=== PATIENT | female | born 1965 | race Caucasian/White ===

== ENCOUNTER 2016-11-15 12:13 | Outpatient (CLI) ==
[2016-04-17 12:25] VITALS: BMI 33.6
--- NOTE | 2016-11-15 13:47 | US ---
EXAM: Bilateral lower extremity venous doppler. HISTORY: Bilateral lower extremity swelling. Right leg pain. COMPARISON: None available. TECHNIQUE: Multiple grayscale and color doppler images were obtained. FINDINGS: There is normal flow, compressibility and augmentation of flow within the right and left common femoral, greater saphenous, profunda, femoral, popliteal, posterior tibial, anterior tibial a nd peroneal veins. IMPRESSION: No evidence for right or left lower extremity deep vein thrombosis at the levels examined.
--- NOTE | 2016-11-15 14:07 | DI ---
EXAM: Five views of the lumbar spine HISTORY: Back pain. COMPARISON: Lumbar spine x-ray 12/07/2015 and 08/19/2014 FINDINGS: Vertebral bodies demonstrate no acute compression fracture or subluxation. There is minim al scattered facet arthropathy. The lumbosacral junction is intact. There is no pars defect identi fied. IMPRESSION: No acute abnormality of the lumbar spine with minimal scattered facet arthropathy.
--- NOTE | 2016-11-15 14:07 | DI ---
Exam: Right hip two views History: Right hip pain Findings: AP and frog lateral views of the right hip were obtained and demonstrates a moderate degr ee of spurring arising from the superior lateral right acetabular rim. Right femoral head is smooth in contour and in satisfactory relationship to the right acetabulum. Right hip joint space appears normal in width. Impression: Sclerosis with associated spurring of the superior lateral right acetabular rim with pr eservation of right hip joint space width.
== END 2016-11-15 12:14 | disposition home or self-care (01) ==
LOC: RAD 12:13
PROVIDERS: ATTEND Internal Medicine
DX: M25.551 Pain in right hip (principal); M79.651 Pain in right thigh; M79.605 Pain in left leg; M54.9 Dorsalgia, unspecified

== ENCOUNTER 2016-11-22 07:40 | Emergency (ER) ==
[2016-11-22 07:48] VITALS: BP 117/77; TEMP 97.8; BMI 33.2
[2016-11-22] MEDS ORDERED: ZOFRAN 4 MG/2 ML IM STA (08:07)
[2016-11-22] MEDS ORDERED: MORPHINE 4 MG/ML SYRINGE IM STA (08:07)
[2016-11-22] MEDS ORDERED: TORADOL IM STA (08:07)
[2016-11-22] MEDS ORDERED: DECADRON 4 MG/ML SDV IM STA (08:07)
--- NOTE | 2016-11-22 08:11 | ED.PDOC ---
General ED Provider: Dr. JESSE PEREZ Chief Complaint: Back Pain Stated Complaint: back pain Time Seen by Physician: 07:40 (pt seen with Cheryl Roblero and myself she has back pain lumbar) Mode of Arrival: Wheelchair Information Source: Patient Exam Limitations: No limitations Primary Care Provider: TRACI HOPKINS Nursing and Triage Documentation Reviewed and Agree: Yes (HIP FILM , LOWER LEG US AND L/SPINE FILMS OUT PT WERE EXAMINED ) Musculoskeletal Complaint Exam - Back Pain Complaint/Exam Mechanism of Injury: Reports: No known trauma Onset/Duration: CHRONIC ACUTELY WORSE TODAY Symptoms Are: Still present Episodes Lasting: Hours Initial Severity: Moderate Current Severity: Moderate Character: Reports: Spasmodic Aggravating: Reports: Movements, Lifting, Bending, Walking Alleviating: Reports: Rest, Position Associated Signs and Symptoms: Denies: Swelling, Redness, Bruising, Fever, Weakness, Numbness, Tingling, Abdominal pain, Flank pain, Bladder incontinence, Bowel incontinence, Weight loss, Pain with weight bearing Related History: Reports: Similar episode (BUT PAIN NOW RX DOWN RIGHT POST LEG (NO TRAUMA)) TAD Risk Factors: Reports: None AAA Risk Factors: Reports: None Cauda Equina Risk Factors: Reports: None Epidural Abcess Risk Factors: Reports: None Related Surgical History: Reports: None Focal Tenderness: No Paraspinal Muscle Tenderness: No Paraspinal Muscle Spasm: No Scoliosis: No Lordosis: No Kyphosis: No SLR Test: Right Negative, Left Negative Hip Motion Testing Pain: Right Negative, Left Negative Focal Weakness: Present: None Focal Sensory Loss: Present: None Gait: Present: Normal Differential Diagnoses: Strain, Sprain Review of Systems - Review Of Systems Constitutional: Reports: No symptoms Eyes: Reports: No symptoms Ears, Nose, Mouth, Throat: Reports: No symptoms Respiratory: Reports: No symptoms Cardiac: Reports: No symptoms GI: Reports: No symptoms : Reports: No symptoms Musculoskeletal: Reports: Back pain (LUMBAR NO URINARY ISSUES ) Skin: Reports: No symptoms Neurological: Reports: No symptoms Endocrine: Reports: No symptoms Hematologic/Lymphatic: Reports: No symptoms All Other Systems: Reviewed and Negative Past Medical History - Past Medical History Previously Healthy: Yes Endocrine: Reports: Hypothyroid Cardiovascular: Reports: None Respiratory: Reports: None Hematological: Reports: None Gastrointestinal: Reports: None Genitourinary: Reports: None Neuro/Psych: Reports: None Musculoskeletal: Reports: None Cancer: Reports: None Last Menstrual Period: 1 week - Surgical History General Surgical History: Reports: Gastric Bypass - Family History Family History: Reports: Unknown - Social History Smoking Status: Never smoker Hx Substance Use: No Alcohol Screening: None Physical Exam - Physical Exam Appearance: Well-appearing, No pain distress, Well-nourished Eyes: MASSIMO, EOMI, Conjunctiva clear ENT: Ears normal, Nose normal, Oropharynx normal Respiratory: Airway patent, Breath sounds clear, Breath sounds equal, Respirations nonlabored Cardiovascular: RRR, Pulses normal, No rub, No murmur GI/: Soft, Nontender, No masses, Bowel sounds normal, No Organomegaly Musculoskeletal: Normal strength, ROM intact, No edema, No calf tenderness Skin: Warm, Dry, Normal color Neurological: Sensation intact, Motor intact, Reflexes intact, Cranial nerves intact, Alert, Oriented Psychiatric: Affect appropriate, Mood appropriate Interpretation - Radiology Interpretation Radiology Interpretation By: Radiologist (EXAMINED ALL OLD ER OUT PT STUDIES AND INFORMED PT AT 8 AM HUSNABD AND MAY AT BEDSIDE) Critical Care Note - Critical Care Note Total Time (mins): 0 Course - Course Orders, Labs, Meds: Orders Category Date Time Status Dexamethasone 4 mg/ml Inj [Decadron 4 mg/ml Sdv] MEDS 11/22/16 08:07 Stat 4 mg IM ONCE STA Ketorolac Tromethamine [Toradol] MEDS 11/22/16 08:07 Stat 30 mg IM ONCE STA Morphine Sulfate [Morphine 4 mg/ml Syringe] MEDS 11/22/16 08:07 Stat 4 mg IM ONCE STA Ondansetron HCl/Pf [Zofran 4 mg/2 ml] MEDS 11/22/16 08:07 Stat 4 mg IM ONCE STA Medications Discontinued Medications Generic Name Dose Route Start Last Admin Trade Name Freq PRN Reason Stop Dose Admin Dexamethasone Sodium Phosphate 4 mg 11/22/16 08:07 Decadron 4 Mg/Ml Sdv IM 11/22/16 08:08 ONCE STA Ketorolac Tromethamine 30 mg 11/22/16 08:07 Toradol IM 11/22/16 08:08 ONCE STA Morphine Sulfate 4 mg 11/22/16 08:07 Morphine 4 Mg/Ml Syringe IM 11/22/16 08:08 ONCE STA Ondansetron HCl 4 mg 11/22/16 08:07 Zofran 4 Mg/2 Ml IM 11/22/16 08:08 ONCE STA Vital Signs: Temp Pulse Resp BP Pulse Ox 11/22/16 07:40 97.8 F 92 H 20 117/77 100 Departure - Departure Time of Disposition: 09:00 (MRI DISCUSSED WITH MAY WOULD AT BEDSIDE. PT HAS OUT PT PAIN MEDS GIVEN TO HER BY HER MD ) Disposition: HOME SELF-CARE Discharge Problem: Sciatic leg pain, Backache Instructions: Sciatica (ED), Lumbar Radiculopathy (ED), Lower Back Exercises ( ED) Condition: Good Pt referred to PMD for follow-up: No Additional Instructions: Please call your Family Physician as soon as possible to schedule a follow-up appointment. YOU WOULD HIGHLY BENFIT FROM A LUMBAR SPINE MRI. PLEASE SEE YOUR MD . Allergies/Adverse Reactions: Allergies pencillin Allergy (Severe, Uncoded 11/22/16 07:49) Swelling and redness to face Home Medications: Ambulatory Orders Alprazolam [Xanax] 0.25 mg PO bedtime PRN 03/05/15 Duloxetine HCl [Cymbalta] 30 mg PO BID 03/05/15 Gabapentin 300 mg PO BEDTIME 03/05/15 Hydrocodone/Acetaminophen [[place] 5-325 Tablet] 1 each PO Bedtime PRN 03/05/15 Levothyroxine Sodium [Synthroid] 175 mcg PO DAILY 03/05/15 Potassium Chloride [Klor-Con 10] 10 meq PO DAILY 03/05/15 Bumetanide [Bumex] 1 mg PO QDAC 11/22/16 Ferrous Sulfate 325 mg PO BID 11/22/16 Disposition Discussed With: Patient, Family
== END 2016-11-22 08:47 | disposition home or self-care (01) ==
LOC: ED 07:40
DX: M54.41 Lumbago with sciatica, right side (principal)
CPT/HCPCS: 96372; 99282

== ENCOUNTER 2017-12-22 17:21 | Inpatient (IN) ==
--- NOTE | 2017-12-22 18:36 | ED.PDOC ---
General Stated Complaint: low potassium Time Seen by Physician: 17:23 Mode of Arrival: Walk-In Information Source: Patient Exam Limitations: No limitations Nursing and Triage Documentation Reviewed and Agree: Yes Reviewed sepsis parameters & appropriate labs ordered?: Yes <JESSE PEREZ - Last Filed: 12/22/17 18:34> System Inflammatory Response Syndrome: Pulse >90 BPM System Inflammatory Response Syndrome: Not Applicable <CLAUDIA DRAPER - Last Filed: 12/22/17 20:44> ED Provider: Dr. CLAUDIA DRAPER Chief Complaint: Abnormal Labs Primary Care Provider: TRACI HOPKINS Sepsis Protocol: For patient's 13 years and over: Temp is 96.8 and below OR 101 and greater Pulse >90 BPM Resp >20/minute Acutely Altered Mental Status Are patient's symptoms suggestive of a new infection, such as: -Pneumonia -Skin, Soft Tissue -Endocarditis -UTI -Bone, Joint Infection -Implantable Device -Acute Abdominal Infection -Wound Infection -Meningitis -Blood Stream Catheter Infection -Unknown Review of Systems - Review Of Systems Constitutional: Reports: No symptoms Eyes: Reports: No symptoms Ears, Nose, Mouth, Throat: Reports: No symptoms Respiratory: Reports: No symptoms Cardiac: Reports: No symptoms GI: Reports: No symptoms : Reports: No symptoms Musculoskeletal: Reports: No symptoms Skin: Reports: No symptoms Neurological: Reports: No symptoms Endocrine: Reports: No symptoms Hematologic/Lymphatic: Reports: No symptoms All Other Systems: Reviewed and Negative <CHRISJESSE - Last Filed: 12/22/17 18:34> Past Medical History - Past Medical History Previously Healthy: Yes Endocrine: Reports: Hypothyroid Cardiovascular: Reports: None Respiratory: Reports: None Hematological: Reports: None Gastrointestinal: Reports: None Genitourinary: Reports: None Neuro/Psych: Reports: None Musculoskeletal: Reports: None Cancer: Reports: None Last Menstrual Period: 12/05/17 - Surgical History General Surgical History: Reports: Gastric Bypass - Family History Family History: Reports: Unknown - Social History Smoking Status: Never smoker Hx Substance Use: No Alcohol Screening: None - Immunizations Tetanus Shot up to Date: Yes <JESSE PREEZ - Last Filed: 12/22/17 18:34> Physical Exam - Physical Exam Appearance: Well-appearing, No pain distress, Well-nourished Eyes: MASSIMO, EOMI, Conjunctiva clear ENT: Ears normal, Nose normal, Oropharynx normal Respiratory: Airway patent, Breath sounds clear, Breath sounds equal, Respirations nonlabored Cardiovascular: RRR, Pulses normal, No rub, No murmur GI/: Soft, Nontender, No masses, Bowel sounds normal, No Organomegaly Musculoskeletal: Normal strength, ROM intact, No edema, No calf tenderness Skin: Warm, Dry, Normal color Neurological: Sensation intact, Motor intact, Reflexes intact, Cranial nerves intact, Alert, Oriented Psychiatric: Affect appropriate, Mood appropriate <TENAJACOBJESSE - Last Filed: 12/22/17 18:34> Interpretation - Mold Construction Supervisor Rate: Normal Rhythm: Sinus Ectopy: None - EKG Interpretation Rate: Normal Rhythm: Sinus <TENAJACOBJESSE - Last Filed: 12/22/17 18:34> Physician Notification - Case Discussed Physician Notified: baron Time of Notification: 18:35 <TENAJACOBJESSE - Last Filed: 12/22/17 18:34> Critical Care Note - Critical Care Note Total Time (mins): 0 <TENAJACOBJESSE - Last Filed: 12/22/17 18:34> - Critical Care Note Total Time (mins): 35 (managing severe hyperkalmia and back pain with IV Potassium) <BARONCLAUDIA - Last Filed: 12/22/17 20:44> Course - Course Hematology/Chemistry: 12/22/17 18:26 12/22/17 18:26 <BARONCLAUDIA - Last Filed: 12/22/17 20:44> - Course Orders, Labs, Meds: Lab Review 12/22/17 12/22/17 12/22/17 18:25 18:26 18:26 WBC 8.19 RBC 4.78 Hgb 10.9 L Hct 35.5 L MCV 74.3 L MCH 22.8 L MCHC 30.7 L RDW Coeff of Germain 14.7 Plt Count 311 Immature Gran % (Auto) 0.2 Neut % (Auto) 46.8 Lymph % (Auto) 39.1 [place] % (Auto) 10.1 H Eos % (Auto) 3.1 Baso % (Auto) 0.7 Immature Gran # (Auto) 0.0 Neut # (Auto) 3.8 Lymph # (Auto) 3.2 [place] # (Auto) 0.8 Eos # (Auto) 0.3 Baso # (Auto) 0.1 Sodium 136 Potassium 1.8 L* Chloride 85 L Carbon Dioxide 38 H Anion Gap 14.8 BUN 14 Creatinine 0.95 Estimated GFR (MDRD) 62.00 BUN/Creatinine Ratio 14.73 Glucose 137 H Calcium 10.0 Magnesium 2.7 H Total Bilirubin 0.8 AST 20 ALT 16 Alkaline Phosphatase 144 H Total Creatine Kinase 84 Troponin I < 0.0100 Total Protein 8.1 Albumin 3.8 Globulin 4.3 Albumin/Globulin Ratio 0.88 Orders Category Date Time Status ADMIT PATIENT INPATIENT .TO SCU (MONITORED BED) ADMISSION 12/22/17 20:29 Active EKG-(ED ONLY) Stat CARDIO 12/22/17 18:03 Completed INTAKE & OUTPUT Q8HR CARE 12/22/17 20:35 Ordered TELEMETRY MONITORING TELE CARE 12/22/17 20:29 Active VITAL SIGNS Q4HR CARE 12/22/17 20:35 Ordered REGULAR DIET DIETARY 12/22/17 Breakfast Ordered BASIC METABOLIC PANEL DAILY@0600 LAB 12/23/17 06:00 Ordered BASIC METABOLIC PANEL DAILY@0600 LAB 12/24/17 06:00 Ordered CBC W/ AUTO DIFF Stat LAB 12/22/17 18:26 Completed COMPREHENSIVE METABOLIC PANEL Stat LAB 12/22/17 18:26 Completed CREATINE KINASE Stat LAB 12/22/17 18:26 Completed MAGNESIUM Stat LAB 12/22/17 18:25 Completed TROPONIN I Stat LAB 12/22/17 18:26 Completed Duloxetine HCl [Cymbalta] MEDS 12/22/17 21:00 Ordered 60 mg PO BEDTIME Enoxaparin Sodium [Lovenox] MEDS 12/23/17 09:00 Ordered 40 mg SUBCUT DAILY Gabapentin [Neurontin] MEDS 12/22/17 21:00 Ordered 300 mg PO BID Ketorolac Tromethamine [Toradol] MEDS 12/22/17 20:35 Stat 30 mg IVP ONCE STA Levothyroxine Sodium [Synthroid] MEDS 12/23/17 09:00 Ordered 150 mcg PO DAILY Pantoprazole Sodium [Protonix IV] MEDS 12/22/17 20:35 Stat 40 mg IVP ONCE STA Potassium Chloride Additive [Potassium Chloride 40 Meq MEDS 12/22/17 20:35 Ordered Vial-Additive Only] 60 meq Sodium Chloride 0.9% [Sodium Chloride] 500 ml IV ONCE Potassium Chloride [K-Dur] MEDS 12/22/17 19:45 Discontinued 40 meq PO ONCE STA Potassium Chloride [K-Dur] MEDS 12/22/17 21:00 Ordered 40 meq PO Q2H Potassium Chloride [Potassium Chloride Premix Run] 10 MEDS 12/22/17 19:18 Discontinued meq Premix 100 ml Water 1 bag IV ONCE Potassium Chloride [Potassium Chloride [place]] 100 MEDS 12/22/17 19:36 Discontinued ml IV .STK-MED Sodium Chloride 0.9% [Sodium Chloride] 1,000 ml MEDS 12/22/17 21:00 Ordered IV 75 mls/hr Sodium Chloride 0.9% [Sodium Chloride] 500 ml MEDS 12/22/17 19:28 Active IV 250 mls/hr RESUSCITATION STATUS Routine OTHERS 12/22/17 20:35 Ordered Medications Generic Name Dose Route Start Last Admin Trade Name Freq PRN Reason Stop Dose Admin Enoxaparin Sodium 40 mg 12/23/17 09:00 Lovenox SUBCUT DAILY TITUS Sodium Chloride 500 mls @ 250 mls/hr 12/22/17 19:28 12/22/17 19:43 Sodium Chloride IV 12/22/17 21:27 250 mls/hr .Q2H STA Administration Potassium Chloride 60 meq/ 530 mls @ 167 mls/hr 12/22/17 20:35 Sodium Chloride IV 12/22/17 23:45 ONCE ONE Sodium Chloride 1,000 mls @ 75 mls/hr 12/22/17 21:00 Sodium Chloride IV .[id number] TITUS Potassium Chloride 40 meq 12/22/17 21:00 K-Dur PO 12/23/17 05:01 Q2H TITUS Discontinued Medications Generic Name Dose Route Start Last Admin Trade Name Freq PRN Reason Stop Dose Admin Potassium Chloride 10 meq/ 100 mls @ 100 mls/hr 12/22/17 19:18 12/22/17 19:47 Sterile Water IV 12/22/17 20:17 100 mls/hr ONCE STA Administration Ketorolac Tromethamine 30 mg 12/22/17 20:35 Toradol IVP 12/22/17 20:36 ONCE STA Pantoprazole Sodium 40 mg 12/22/17 20:35 Protonix Iv IVP 12/22/17 20:36 ONCE STA Potassium Chloride 40 meq 12/22/17 19:45 12/22/17 19:59 K-Dur PO 12/22/17 19:46 40 meq ONCE STA Administration Vital Signs: Temp Pulse Resp BP Pulse Ox 12/22/17 17:21 98.0 F 96 H 20 114/76 95 Departure - Departure Pt referred to PMD for follow-up: Yes IPMP verified?: No Disposition Discussed With: Patient, Family <CHRISJESSE - Last Filed: 12/22/17 18:34> - Departure Time of Disposition: 20:34 <CLAUDIA DRAPER - Last Filed: 12/22/17 20:44> - Departure Disposition: ADMITTED INPATIENT Discharge Problem: Laboratory test result abnormal, Hypokalemia Back pain Qualifiers: Back pain location: low back pain Chronicity: acute Back pain laterality: midline Sciatica presence: without sciatica Qualified Code(s): M54.5 - Low back pain Condition: Good Allergies/Adverse Reactions: Allergies pencillin Allergy (Severe, Uncoded 11/22/16 07:49) Swelling and redness to face Home Medications: Ambulatory Orders Duloxetine HCl [Cymbalta] 60 mg PO BEDTIME 03/05/15 Gabapentin 300 mg PO BID 03/05/15 Levothyroxine Sodium [Synthroid] 150 mcg PO DAILY 03/05/15 Bumetanide [Bumex] 1 mg PO BID 11/22/16
[2017-12-22] MEDS ORDERED: POTASSIUM CHLORIDE PREMIX RUN 10 MEQ in PREMIX 100 ML WATER 1 BAG IV STA (19:18)
[2017-12-22] MEDS ORDERED: SODIUM CHLORIDE 500 ML IV STA (19:28)
[2017-12-22] MEDS ORDERED: POTASSIUM CHLORIDE PREMIX RUN 100 ML IV ONE (19:36)
[2017-12-22] MEDS ORDERED: K-DUR PO STA (19:45)
[2017-12-22] MEDS ORDERED: PROTONIX IV IVP STA (20:35)
[2017-12-22] MEDS ORDERED: POTASSIUM CHLORIDE IV ONE (20:35)
[2017-12-22] MEDS ORDERED: TORADOL IVP STA (20:35)
[2017-12-22] MEDS ORDERED: ADDITIVE ONLY IV ONE (20:35)
[2017-12-22] MEDS ORDERED: SODIUM CHLORIDE IV ONE (20:35)
[2017-12-22] MEDS ORDERED: POTASSIUM CHLORIDE 20 MEQ VIAL-ADDITIVE ONLY IV ONE ×2 (22:43→23:10)
[2017-12-22] MEDS ORDERED: [UNRECOGNIZED DRUG - MIXTURE] IV ONE ×2 (23:03→23:06)
[2017-12-22] MEDS: SODIUM CHLORIDE 1,000 ML IV SCH (23:07)
[2017-12-22] MEDS: CYMBALTA PO SCH (23:20)
[2017-12-22] MEDS: NEURONTIN PO SCH (23:21)
[2017-12-22] MEDS: K-DUR PO SCH ×2 (23:21→23:50)
[2017-12-22] MEDS ORDERED: ULTRAM PO PRN (23:30)
[2017-12-22 23:43] VITALS: BMI 34.6
[2017-12-23] MEDS: K-DUR PO SCH ×3 (01:29→05:47)
[2017-12-23] MEDS: TORADOL IVP PRN ×3 (05:51→21:29)
[2017-12-23] MEDS: SODIUM CHLORIDE 1,000 ML IV SCH ×2 (06:06→19:44)
[2017-12-23] MEDS: NEURONTIN PO SCH ×2 (08:28→20:49)
[2017-12-23] MEDS: LOVENOX SUBCUT SCH (08:28)
[2017-12-23] MEDS: SYNTHROID PO SCH (08:28)
[2017-12-23] MEDS ORDERED: NON-FORMULARY MEDICATION (Levothyroxine Sodium [Synthroid] 150 MCG) PO SCH (09:00)
[2017-12-23] MEDS: CYMBALTA PO SCH (20:49)
[2017-12-24] MEDS: SYNTHROID PO SCH (05:42)
[2017-12-24] MEDS: TORADOL IVP PRN ×3 (05:43→21:59)
[2017-12-24] MEDS: NEURONTIN PO SCH ×2 (08:29→20:38)
[2017-12-24] MEDS: LOVENOX SUBCUT SCH (08:29)
[2017-12-24] MEDS: SODIUM CHLORIDE 1,000 ML IV SCH (08:59)
[2017-12-24] MEDS ORDERED: [UNRECOGNIZED DRUG - MIXTURE] IV SCH ×2 (09:00→09:30)
[2017-12-24] MEDS: K-DUR PO SCH ×4 (09:18→20:38)
[2017-12-24] MEDS ORDERED: [UNRECOGNIZED DRUG - MIXTURE] IV ONE (15:51)
[2017-12-24] MEDS: CYMBALTA PO SCH (20:37)
[2017-12-25] MEDS: SYNTHROID PO SCH (05:55)
[2017-12-25 05:57] VITALS: BP 124/84; TEMP 98
[2017-12-25] MEDS ORDERED: DECADRON 4 MG/ML SDV IM STA (08:13)
[2017-12-25] MEDS ORDERED: K-DUR PO STA (08:14)
[2017-12-25] MEDS: K-DUR PO SCH (09:01)
[2017-12-25] MEDS: TORADOL IVP PRN (09:03)
[2017-12-25] MEDS: NEURONTIN PO SCH (09:03)
[2017-12-25] MEDS: LOVENOX SUBCUT SCH (09:04)
--- NOTE | 2017-12-25 10:10 | CM.DICTOOL ---
ADMISSION: 12/22/17 21:47 DISCHARGE: DECEMBER 25, 2017 DATE OF SERVICE: 12/25/17 FINAL DIAGNOSIS HYPOKALEMIA, RESOLVED LEG EDEMA HYPOTHYROID SPINAL STENOSIS FIBROMYALGIA OSTEOARTHRITIS ANEMIA GASTRIC BYPASS CHOLECYSTECTOMY LAST VITALS Temp Pulse Resp BP Pulse Ox 98.0 F 96 H 18 124/84 99 12/25/17 05:56 12/25/17 05:56 12/25/17 05:56 12/25/17 05:56 12/25/17 05:56 TAKE THESE MEDICATIONS Duloxetine HCl (Cymbalta) 60 mg PO BEDTIME [facility] Last Admin: 12/24/17 20:37 Dose: 60 mg Gabapentin (Neurontin) 300 mg PO BID [facility] Last Admin: 12/25/17 09:03 Dose: 300 mg Levothyroxine Sodium (Synthroid) 150 mcg PO QDAC [facility] Last Admin: 12/25/17 05:55 Dose: 150 mcg Potassium Chloride (K-Dur) 10 meq PO BID [facility] Last Admin: 12/25/17 09:01 Dose: Not Given Tramadol HCl (Ultram) 50 mg PO BID PRN PRN Reason: MODERATE PAIN Toradol 10 mg PO Q 8 H PRN PAIN x 5 days Bumex 1 mg PO [facility] THREE TIMES A WEEK Last Admin: MEDICATION CHANGES Take Bumex Three times a week only ALLERGIES pencillin Allergy (Severe, Uncoded 11/22/16 07:49) Swelling and redness to face NEW PRESCRIPTIONS: Toradol 10 mg take 1 every 8 hours prn back pain. Do not take with Tramadol SMOKING: Not Applicable DISEASE SPECIFIC EDUCATION: Medications Activity Appointment LAB REVIEW: 12/25/17 04:40 12/25/17 04:40 12/25/17 04:40: Sodium 140, Potassium 4.1, Chloride 111 H, Carbon Dioxide 24, Anion Gap 9.1, BUN 9, Creatinine 0.61, Estimated GFR (MDRD) 104.00, BUN/ Creatinine Ratio 14.75, Glucose 126 H D, Calcium 8.6, Total Bilirubin 0.3, AST 14 L, ALT 12, Alkaline Phosphatase 106 H, Total Protein 5.6 L, Albumin 2.6 L, Globulin 3.0, Albumin/Globulin Ratio 0.87 12/25/17 04:40: WBC 5.66, RBC 4.04 L, Hgb 9.2 L, Hct 30.8 L, MCV 76.2 L, MCH 22.8 L, MCHC 29.9 L, RDW Coeff of Germain 15.7 H, Plt Count 213, Immature Gran % ( Auto) 0.2, Neut % (Auto) 42.6, Lymph % (Auto) 43.1, [place] % (Auto) 8.1, Eos % ( Auto) 5.1, Baso % (Auto) 0.9, Immature Gran # (Auto) 0.0, Neut # (Auto) 2.4, Lymph # (Auto) 2.4, [place] # (Auto) 0.5, Eos # (Auto) 0.3, Baso # (Auto) 0.1 12/24/17 15:10: Sodium 140, Potassium 3.7, Chloride 105, Carbon Dioxide 25, Anion Gap 13.7, BUN 10, Creatinine 0.74, Estimated GFR (MDRD) 83.00, BUN/ Creatinine Ratio 13.51, Glucose 180 H, Calcium 9.0, Total Bilirubin 0.3, AST 16 , ALT 14, Alkaline Phosphatase 116 H, Total Protein 6.7, Albumin 3.2 L, Globulin 3.5, Albumin/Globulin Ratio 0.91 PLAN: Discharge home Diet: Resume as tolerated Activity: Resume as tolerated May return to work tomorrow Take Potassium (has 10 meq) twice daily for 1 week Do not take Toradol and Tramadol together An appointment is scheduled with Dr. Francis/Claudia Chen APRN on January 01 at 11 :45 am. Labs will be checked at time of visit Full Code Mrs. Smyth is alert and oriented x 3. She reports low back pain, but is independent with ambulation, turning and positioning in the bed. She reports a history of back pain. She is independent with activities of daily living. No abdominal pain or nausea. Meal intakes are good at 50-100%. She reports diarrhea stools x 3 today, one large and 2 smaller. Skin is intact and free of decubitus ulcers, rashes or irritation. Dalton Francis MD Claudia Chen APRN
--- NOTE | 2017-12-25 12:56 | PCM.PROG ---
Attending Provider: ATTENDING PROVIDER: Dr. TRACI HOPKINS This patient is seen with Claudia Chen, Nurse Practitioner. DATE OF SERVICE: 12/25/17 SUBJECTIVE: This 52 year old WHITE/ F was hospitalized 12/22/17. The patient is lying in bed, alert. Potassium level is back to normal. REVIEW OF SYSTEMS: CONSTITUTIONAL: No night sweats. No fatigue, malaise, lethargy. No fever or chills. HEENT: Eyes: No visual changes. No eye pain. No eye discharge. ENT: No runny nose. No epistaxis. No sinus pain. No odynophagia. No congestion. RESPIRATORY: No cough, no congestion. No hemoptysis. No shortness of breath. CARDIOVASCULAR: No angina symptoms. No CHF symptoms. No atypical chest pain for CAD. No palpitations. No orthopnea.. GASTROINTESTINAL: No abdominal pain. No nausea or vomiting. No diarrhea or constipation. No hematemesis. No hematochezia. GENITOURINARY: No urgency. No frequency. No dysuria. No hematuria. No obstructive symptoms. No discharge. No pain. No significant abnormal bleeding. MUSCULOSKELETAL: No musculoskeletal pain; no joint swelling. NEUROLOGICAL: Awake, alert, oriented to time, place and person. No headache. No neck pain. No syncope. No seizures. No dizziness. PSYCHIATRIC: Not anxious. No depression. No suicidal thoughts. No homicidal thoughts. SKIN: No rash. No lesions. No wounds. ENDOCRINE: No unexplained weight loss. No weight gain. HEMATOLOGIC/LYMPHATIC: No anemia. No purpura. No petechiae. No prolonged or excessive bleeding. No palpable lymph nodes. PHYSICAL EXAMINATION: GENERAL: The patient is awake, alert and oriented, sitting in bed in no distress. VITAL SIGNS: Temperature 98.0 F, Pulse 96, Respiratory Rate 18, BP 124/84, Pulse Ox 99% HEENT: Head normocephalic, atraumatic. Eyes: Extraocular muscles are intact. Pupils are equal, round and reactive to light and accommodation. Ears: No lesions. Nose appeared normal. Throat: No exudate or erythema. NECK: Supple. No JVD, no carotid bruit. No lymphadenopathy or thyromegaly. LUNGS: Clear to auscultation. Percussion note normal. Chest symmetrical. HEART: S1, S2, no S3. No murmurs. No cyanosis or clubbing. No ascites. Pulses: Dorsalis pedis and posterior tibial pulses +1 to +2 both sides. ABDOMEN: Soft. Non-tender. Bowel sounds active. No CVA tenderness. No mass felt. EXTREMITIES: No edema. Full range of motion of all extremities, equal. NEUROLOGIC: No focal deficit. Cranial nerves II through XII are grossly intact. No headache, no double vision or headache. SKIN: Not dry. Intact. Turgor-normal. LYMPHATIC: No palpable lymph nodes/no lymphedema. MUSCULOSKELETAL: Normal joints with no swelling. Muscle tone is normal. LAB REVIEW: 12/25/17 04:40 12/25/17 04:40 12/25/17 04:40: Sodium 140, Potassium 4.1, Chloride 111 H, Carbon Dioxide 24, Anion Gap 9.1, BUN 9, Creatinine 0.61, Estimated GFR (MDRD) 104.00, BUN/ Creatinine Ratio 14.75, Glucose 126 H D, Calcium 8.6, Total Bilirubin 0.3, AST 14 L, ALT 12, Alkaline Phosphatase 106 H, Total Protein 5.6 L, Albumin 2.6 L, Globulin 3.0, Albumin/Globulin Ratio 0.87 12/25/17 04:40: WBC 5.66, RBC 4.04 L, Hgb 9.2 L, Hct 30.8 L, MCV 76.2 L, MCH 22.8 L, MCHC 29.9 L, RDW Coeff of Germain 15.7 H, Plt Count 213, Immature Gran % ( Auto) 0.2, Neut % (Auto) 42.6, Lymph % (Auto) 43.1, [place] % (Auto) 8.1, Eos % ( Auto) 5.1, Baso % (Auto) 0.9, Immature Gran # (Auto) 0.0, Neut # (Auto) 2.4, Lymph # (Auto) 2.4, [place] # (Auto) 0.5, Eos # (Auto) 0.3, Baso # (Auto) 0.1 12/24/17 15:10: Sodium 140, Potassium 3.7, Chloride 105, Carbon Dioxide 25, Anion Gap 13.7, BUN 10, Creatinine 0.74, Estimated GFR (MDRD) 83.00, BUN/ Creatinine Ratio 13.51, Glucose 180 H, Calcium 9.0, Total Bilirubin 0.3, AST 16 , ALT 14, Alkaline Phosphatase 116 H, Total Protein 6.7, Albumin 3.2 L, Globulin 3.5, Albumin/Globulin Ratio 0.91 ASSESSMENT: 1. Hypokalemia resolved 2. Anemia 3. S/P gastric bypass 4. Chronic back pain PLAN: 1. D/C home 2. D/C telemetry 3. Potassium twice a day for one week 4. Will see in office next week 5. Decadron 1 cc today 6. Toradol 30 mg IV Plan and coordination of the patient's care discussed in the presence of Wood Carving Lathe Operator and nurse. CONDITION: Stable SCRIBED BY: ERIC COOK Prepress Operator scribed while in presence of service performed by Dr. Hopkins/Claudia Chen APRN on 12/25/17 ([id number])
--- NOTE | 2017-12-25 13:31 | PN ---
DATE OF SERVICE: 12/23/17 SUBJECTIVE: The patient's condition has improved. She is feeling better. She is asymptomatic. Her is in the room. Appetite is normal. Potassium today is 3.0 which is quite an improvement from 1.7 yesterday. REVIEW OF SYSTEMS: CONSTITUTIONAL: No night sweats. No fatigue, malaise, lethargy. No fever or chills. HEENT: Eyes: No visual changes. No eye pain. No eye discharge. ENT: No runny nose. No epistaxis. No sinus pain. No sore throat. No odynophagia. No congestion. RESPIRATORY: No cough, no congestion. No hemoptysis. No shortness of breath. CARDIOVASCULAR: No angina symptoms. No CHF symptoms. No atypical chest pain for CAD. No palpitations. No orthopnea. GASTROINTESTINAL: No abdominal pain. No nausea or vomiting. No diarrhea or constipation. No hematemesis. No hematochezia. GENITOURINARY: No urgency. No frequency. No dysuria. No hematuria. No obstructive symptoms. No discharge. No pain. No significant abnormal bleeding. MUSCULOSKELETAL: No musculoskeletal pain; no joint swelling. NEUROLOGICAL: No headache. No neck pain. No syncope. No seizures. No dizziness. PSYCHIATRIC: Not anxious. No depression. No suicidal thoughts. No homicidal thoughts. SKIN: No rash. No lesions. No wounds. ENDOCRINE: No unexplained weight loss. No weight gain. HEMATOLOGIC/LYMPHATIC: No anemia. No purpura. No petechiae. No prolonged or excessive bleeding. No palpable lymph nodes. PHYSICAL EXAMINATION: GENERAL: The patient is oriented to time, place and person. HEENT: Head normocephalic, atraumatic. Eyes: Extraocular muscles are intact. Pupils are equal, round and reactive to light and accommodation. Ears: No lesions. Nose appeared normal. Throat: No exudate or erythema. NECK: Supple. No JVD, no carotid bruit. No lymphadenopathy or thyromegaly. LUNGS: Clear to auscultation. Percussion note normal. Chest symmetrical. HEART: S1, S2, no S3. No murmurs. No cyanosis or clubbing. No ascites. Pulses: Dorsalis pedis and posterior tibial pulses +1 to +2 both sides. ABDOMEN: Soft. Nontender. Bowel sounds active. No CVA tenderness. No mass felt. EXTREMITIES: No edema. Full range of motion of all extremities, equal. NEUROLOGIC: No focal deficit. Cranial nerves II through XII are grossly intact. No headache, no double vision or headache. SKIN: Not dry. Intact. Turgor - normal. LYMPHATIC: No palpable lymph nodes/no lymphedema. MUSCULOSKELETAL: Normal joints with no swelling. Muscle tone is normal. ASSESSMENT: 1. SEVERE HYPOKALEMIA LIKELY CAUSE IS TAKING BUMEX MULTIPLE TIMES A DAY WITHOUT POTASSIUM SUPPLEMENTS. THE PATIENT WAS SUPPOSED TO TAKE IT A COUPLE TIMES A WEEK FOR LEG SWELLING NEEDED. 2. OBESITY 3. HYPOTHYROIDISM 4. ANXIETY DISORDER PLAN: 1. To educate about keeping legs elevated, decrease salt intake, take diuretics as needed. TIME SPENT: More than 30 minutes. Plan and coordination of the patient's care discussed in the presence of nurse. ROGER
--- NOTE | 2017-12-25 13:47 | PN ---
DATE OF SERVICE: 12/24/17 SUBJECTIVE: The patient was hospitalized with hypokalemia. Potassium today is still 3.0, hasn't dropped. Will give more potassium supplements today in IV fluids 1000 cc NS would have 60meq KCL to be infused 12 hourly also 40meq KCL to be given five times today. The patient's mid day potassium was reported at 3.7 by the nurse. Continue potassium supplements. REVIEW OF SYSTEMS: CONSTITUTIONAL: No night sweats. No fatigue, malaise, lethargy. No fever or chills. HEENT: Eyes: No visual changes. No eye pain. No eye discharge. ENT: No runny nose. No epistaxis. No sinus pain. No sore throat. No odynophagia. No congestion. RESPIRATORY: No cough, no congestion. No hemoptysis. No shortness of breath. CARDIOVASCULAR: No angina symptoms. No CHF symptoms. No atypical chest pain for CAD. No palpitations. No orthopnea. GASTROINTESTINAL: No abdominal pain. No nausea or vomiting. No diarrhea or constipation. No hematemesis. No hematochezia. GENITOURINARY: No urgency. No frequency. No dysuria. No hematuria. No obstructive symptoms. No discharge. No pain. No significant abnormal bleeding. MUSCULOSKELETAL: No musculoskeletal pain; no joint swelling. NEUROLOGICAL: No headache. No neck pain. No syncope. No seizures. No dizziness. PSYCHIATRIC: Not anxious. No depression. No suicidal thoughts. No homicidal thoughts. SKIN: No rash. No lesions. No wounds. ENDOCRINE: No unexplained weight loss. No weight gain. HEMATOLOGIC/LYMPHATIC: No anemia. No purpura. No petechiae. No prolonged or excessive bleeding. No palpable lymph nodes. PHYSICAL EXAMINATION: HEENT: Head normocephalic, atraumatic. Eyes: Extraocular muscles are intact. Pupils are equal, round and reactive to light and accommodation. Ears: No lesions. Nose appeared normal. Throat: No exudate or erythema. NECK: Supple. No JVD, no carotid bruit. No lymphadenopathy or thyromegaly. LUNGS: Clear to auscultation. Percussion note normal. Chest symmetrical. HEART: S1, S2, no S3. No murmurs. No cyanosis or clubbing. No ascites. Pulses: Dorsalis pedis and posterior tibial pulses +1 to +2 both sides. ABDOMEN: Soft. Nontender. Bowel sounds active. No CVA tenderness. No mass felt. No evidence of fluid overload. EXTREMITIES: No edema. Full range of motion of all extremities, equal. NEUROLOGIC: No focal deficit. Cranial nerves II through XII are grossly intact. No headache, no double vision or headache. SKIN: Not dry. Intact. Turgor - normal. LYMPHATIC: No palpable lymph nodes/no lymphedema. MUSCULOSKELETAL: Normal joints with no swelling. Muscle tone is normal. ASSESSMENT: 1. HYPOKALEMIA HAS RESOLVED. THE PATIENT HAS NO SYMPTOMS FROM HYPOKALEMIA. 2. TELEMETRY DOES NOT SHOW ANY CARDIAC ARRHYTHMIAS, TELEMETRY STABLE. CONDITION: Stable. TIME SPENT: More than 30 minutes. Plan and coordination of the patient's care discussed in the presence of nurse. ROGER
--- NOTE | 2017-12-25 14:01 | PN ---
DATE OF SERVICE: 12/22/17 SUBJECTIVE: The patient was hospitalized through the emergency room with severe hypokalemia. The patient's potassium was 1.7. I got a call from the [facility] that the patient's blood was sent for routine labs a couple of days ago reported to me that the patient's potassium was 2.2. I was unable to get in touch with Jennifer through the phone so I called to call the emergency room and they had to utilize the services of the [facility] to get the patient. In the emergency room when the patient was checked for potassium, it came back as 1.7. The patient denies any weakness. No PND, no orthopnea. She is able to walk, working full-time, practically asymptomatic for severe hypokalemia. PHYSICAL EXAMINATION: GENERAL: The patient is oriented to time, place and person. HEENT: Head normocephalic, atraumatic. Eyes: Extraocular muscles are intact. Pupils are equal, round and reactive to light and accommodation. Ears: No lesions. Nose appeared normal. Throat: No exudate or erythema. NECK: Supple. No JVD, no carotid bruit. No lymphadenopathy or thyromegaly. LUNGS: Clear to auscultation. Percussion note normal. Chest symmetrical. HEART: S1, S2, no S3. No murmurs. No cyanosis or clubbing. No ascites. Pulses: Dorsalis pedis and posterior tibial pulses +1 to +2 both sides. ABDOMEN: Soft. Nontender. Bowel sounds active. No CVA tenderness. No mass felt. EXTREMITIES: No edema. Full range of motion of all extremities, equal. NEUROLOGIC: No focal deficit. Cranial nerves II through XII are grossly intact. No headache, no double vision or headache. SKIN: Not dry. Intact. Turgor - normal. LYMPHATIC: No palpable lymph nodes/no lymphedema. MUSCULOSKELETAL: Normal joints with no swelling. Muscle tone is normal. ASSESSMENT: 1. SEVERE HYPOKALEMIA 2. HYPERTENSION 3. OBESITY PLAN: 1. Continue Bumex 10 mEq 2. Potassium rider every hour for 6 times, also 40 mEq potassium every 2 hours times five. 3. STAT serum potassium level at 11 o'clock. 4. Telemetry to monitor the heart rhythm for any arrhythmias. The patient's is in the room when I checked the patient out in the emergency room. The patient very likely throughout the night will get some potassium supplements by mouth and IV. She will have daily CBC, CMP. CONDITION: Stable. TIME SPENT: More than 30 minutes. Plan and coordination of the patient's care discussed in the presence of nurse. ROGER
--- NOTE | 2017-12-29 14:44 | HP ---
DATE OF SERVICE: 12/23/17 HISTORY OF PRESENT ILLNESS: This is a 52-year-old white female who had labs drawn Monday in our office. [place] called Dr. Francis at home on Monday evening stating that she had a low potassium of 2.2. He was unable to contact her and she did not have an available voicemail so the [employer] went to her home and now has instructed her to present to the emergency room for hypokalemia. PAST MEDICAL HISTORY: Chronic low back pain Hypothyroidism Leg edema Obesity Depression Neuropathy History of hypokalemia PAST SURGICAL HISTORY: Status post gastric bypass REVIEW OF SYSTEMS: CONSTITUTIONAL: The patient is asymptomatic. No night sweats. No fatigue, malaise, lethargy. No fever or chills. HEENT: Eyes: No visual changes. No eye pain. No eye discharge. ENT: No runny nose. No epistaxis. No sinus pain. No sore throat. No odynophagia. No ear pain. No congestion. RESPIRATORY: No cough, no congestion. No hemoptysis. No shortness of breath. CARDIOVASCULAR: No angina symptoms. No CHF symptoms. No atypical chest pain for CAD. No palpitations. No PND. No orthopnea. GASTROINTESTINAL: No abdominal pain. No nausea or vomiting. No diarrhea or constipation. No hematemesis. No hematochezia. GENITOURINARY: No urgency. No frequency. No dysuria. No hematuria. No obstructive symptoms. No discharge. No pain. No significant abnormal bleeding. MUSCULOSKELETAL: No musculoskeletal pain. No joint swelling. No arthritis. NEUROLOGICAL: No headache. No neck pain. No syncope. No seizures. No dizziness. PSYCHIATRIC: Not anxious. No depression. No suicidal thoughts. No homicidal thoughts. SKIN: No rash. No lesions. No wounds. ENDOCRINE: No unexplained weight loss. No weight gain. HEMATOLOGIC/LYMPHATIC: No anemia. No purpura. No petechiae. No prolonged or excessive bleeding. No palpable lymph nodes. PERSONAL/FAMILY/SOCIAL HISTORY: Nonsmoker. Denies any alcohol or ilicit drug use. She is a business systems manager. She lives at home with her . MEDICATIONS: Synthroid 150 mcg p.o. daily Gabapentin 300 mg p.o. b.i.d. Cymbalta 60 mg p.o. bedtime Bumex 1 mg p.o. b.i.d. Tramadol (Ultram) 50 mg p.o. b.i.d. p.r.n. ALLERGIES: PENICILLIN PHYSICAL EXAMINATION: VITAL SIGNS: Temperature 98, heart rate 96, respirations 20, BP 114/76, pulse ox 95%. HEENT: Head normocephalic, atraumatic. Eyes: Extraocular muscles are intact. Pupils are equal, round and reactive to light and accommodation. Ears: No lesions. Nose appeared normal. Throat: No exudate or erythema. NECK: Supple. No JVD, no carotid bruit. No lymphadenopathy or thyromegaly. LUNGS: Clear to auscultation. Percussion note normal. Chest symmetrical. HEART: S1, S2, no S3. No murmurs. No cyanosis or clubbing. No ascites. Pulses: Dorsalis pedis and posterior tibial pulses +1 to +2 bilaterally. ABDOMEN: Soft. Nontender. Bowel sounds active. No CVA tenderness. No mass felt. EXTREMITIES: No edema. Full range of motion of all extremities, equal. NEUROLOGIC: No focal deficit. Cranial nerves II through XII are grossly intact. No headache, no double vision or headache. SKIN: Not dry. Intact. Turgor - normal. LYMPHATIC: No palpable lymph nodes/no lymphedema. MUSCULOSKELETAL: Normal joints with no swelling. Muscle tone is normal. LAB VALUES: White count 8.19, hemoglobin 10.9, hematocrit 35.5, platelets 311. Sodium 136, potassium 1.8, c02 38, BUN 14, creatinine 0.95, glucose 137. Magnesium 2.7, AST 20, ALT 16, alkaline phosphatase 144. Total CK 84. ASSESSMENT: 1. SEVERE HYPOKALEMIA 2. ANEMIA 3. CHRONIC LOW BACK PAIN PLAN: 1. Admit to the Special Care Unit 2. Potassium 40 mEq p.o. q.i.d. 3. IV potassium 30 mEq per bag 4. Continue all home medications 5. Routine telemetry monitoring 6. Regular diet 7. CBC, CMP daily 8. Will follow closely TIME SPENT: More than 70 minutes. MTDD
--- NOTE | 2017-12-29 14:54 | DS ---
DATE OF SERVICE: FINAL DIAGNOSIS: 1. HYPOKALEMIA, RESOLVED 2. LEG EDEMA 3. HYPOTHYROID 4. SPINAL STENOSIS 5. FIBROMYALGIA 6. OSTEOARTHRITIS 7. ANEMIA 8. GASTRIC BYPASS 9. CHOLECYSTECTOMY DISCHARGE INSTRUCTIONS: Followup appointment with Dr. Francis/Claudia Chen APRN on 01/01/18 at 11:45 a.m. Labs will be checked at the time of visit. MEDICATIONS AT DISCHARGE: 1. Levothyroxine (Synthroid) 150 mcg p.o. daily 2. Gabapentin 300 mg p.o. b.i.d. 3. Duloxetine (Cymbalta) 60 mg p.o. bedtime 4. Bumex 1 mg p.o. b.i.d. 5. Tramadol 50 mg p.o. b.i.d. p.r.n. 6. Potassium Chloride (K-Tab ER) 10 mEq p.o. b.i.d. 7. Bumetanide 1 mg p.o. MoWeFri NEW PRESCRIPTIONS: Toradol 10 mg take one every eight hours p.r.n. back pain. Do not take with Tramadol. Take potassium (has 10 mEq) twice daily for one week. MEDICATION CHANGES: Take Bumex three times a week only. DIET INSTRUCTIONS: Resume as tolerated. ACTIVITY: Resume as tolerated May return to work tomorrow SMOKING: N/A DISEASE SPECIFIC EDUCATION: Medications Activity Appointment HOSPITAL COURSE: This is a 52-year-old white female who presented to the emergency room with a potassium of 5.8 after having a potassium of 2.2 in our office. She was experiencing no symptoms. She does have a history of hypokalemia. She was admitted, placed on IV fluids with 30 mEq of potassium per bag. She was started on Potassium orally 40 mEq four times daily. She has had a CBC and CMP daily. The day following admission her potassium katharine to 2.4. On Monday her potassium was 3 and today on day of discharge, her potassium is 4.1. The patient had been taking Bumex. She has been on this daily for a number of years; however, she had stopped taking her potassium twice daily on her own approximately 6 months ago. Recently, she had increased her Bumex to take it twice a day several days a week and also it was still not taking her oral potassium. She has a history of severe low back pain for which she had seen pain management. She was given Toradol 30 mg IV q.8hr as needed for her pain. She experienced no EKG changes with her hypokalemia. She has had no abdominal pain or nausea. No diarrhea. We will send her home with Toradol 10 mg t.i.d. p.r.n. as needed for the back pain for the next 5 days. Just due to aggravation from being hospitalized and she will continue to take oral potassium 10 mEq twice daily for the next week. She is instructed to take her Bumex three days per week only and we will followup with her in the office next week with repeat CMP. The patient is discharged in stable condition. Again her potassium is 4.1, temperature 98, heart rate 96, respirations 18, BP 124/84, pulse ox 99%. SPECIFIC ORDERS: The patient is a full code. TIME SPENT: More than 60 minutes. ARIANNED
--- NOTE | 2018-01-01 11:52 | PN ---
DATE OF SERVICE: 12/25/17 SUBJECTIVE: The patient was seen and examined with the nurse practitioner. The patient's condition has improved. Potassium 4.1. She is feeling better. Hemoglobin 9.2. The patient has a history of anemia. Hemodilution is another part of it. The patient's condition is stable. The patient will be discharged home. Advised to cut down Bumex to three days a week instead of twice a day. She did not take potassium supplements for 6 months as the last potassium was normal so she decided herself not to take potassium. Advised to take potassium. Also will busmar renin inactivity. Again, I think the patient has hyperaldosteronism, was because of taking too many diuretics without potassium supplements. CONDITION: Stable. TIME SPENT: More than 30 minutes. Plan and coordination of the patient's care discussed in the presence of nurse. ROGER
--- NOTE | 2018-01-01 11:54 | PN ---
CODING FOR BILLING 12/22/17 LEVEL 5 12/23/17 INTERMEDIATE 12/24/17 INTERMEDIATE 12/25/17 DISCHARGE MTDD
== END 2017-12-25 10:40 | disposition home or self-care (01) | DRG 641 ==
LOC: ED 17:21 → SCU 21:47
PROVIDERS: ADMIT Internal Medicine; ATTEND Internal Medicine
DX: E87.6 Hypokalemia (principal); T50.1X1A Poisoning by loop [high-ceiling] diuretics, accidental (unintentional), initial encounter; R60.0 Localized edema; M54.5 Low back pain; G89.29 Other chronic pain; E26.9 Hyperaldosteronism, unspecified; I10 Essential (primary) hypertension; D64.9 Anemia, unspecified; E66.9 Obesity, unspecified; F41.9 Anxiety disorder, unspecified; E03.9 Hypothyroidism, unspecified; M48.00 Spinal stenosis, site unspecified; M79.7 Fibromyalgia; M19.90 Unspecified osteoarthritis, unspecified site; Z90.49 Acquired absence of other specified parts of digestive tract; Z79.899 Other long term (current) drug therapy; Z98.84 Bariatric surgery status
CPT/HCPCS: 36415; 80053; 82550; 83735; 83880; 84132; 84484; 85025; 87081; 93005; 93010; 96365; 96375; 99284

== ENCOUNTER 2018-01-17 16:38 | Outpatient (CLI) | END 2018-01-17 16:39 | disposition home or self-care (01) | LOC: LAB 16:38 | PROVIDERS: ATTEND Internal Medicine | DX: E87.6 Hypokalemia (principal) | CPT/HCPCS: 36415; 80053 ==

== ENCOUNTER 2018-01-22 13:24 | Outpatient (CLI) | END 2018-01-22 13:25 | disposition home or self-care (01) | LOC: LAB 13:24 | PROVIDERS: ATTEND Internal Medicine | DX: E87.6 Hypokalemia (principal) | CPT/HCPCS: 36415; 80053 ==

== ENCOUNTER 2018-02-01 08:33 | Outpatient (CLI) | END 2018-02-01 08:34 | disposition home or self-care (01) | LOC: LAB 08:33 | PROVIDERS: ATTEND Internal Medicine | DX: E87.6 Hypokalemia (principal) | CPT/HCPCS: 36415; 80053 ==

== ENCOUNTER 2018-05-28 11:00 | Day surgery (SDC) ==
[2018-05-28 11:57] VITALS: TEMP 97.2
[2018-05-28] MEDS ORDERED: LIDOCAINE 1% 20 ML MDV ID STA (11:58)
[2018-05-28 12:11] LABS: URINE PREGNANCY TEST NEGATIVE (NEGATIVE)
[2018-05-28] MEDS ORDERED: VERSED ONE (13:15)
[2018-05-28] MEDS ORDERED: DIPRIVAN 20 ML VIAL IVP ONE (13:15)
[2018-05-28 14:05] VITALS: BP 99/54
--- NOTE | 2018-05-29 13:52 | OP ---
PROCEDURE: COLONOSCOPY TO THE CECUM. ENDOSCOPIST: Fannie VALDEZ M.D. INDICATION: ANEMIA. INSTRUMENT: [id number]. MEDICATION: PER ANESTHESIA. PROCEDURE: The patient was positioned for colonoscopy. The digital rectal exam was negative. The colonoscope was inserted through the anus and advanced to the cecum. The prep was inadequate throughout. We were able to irrigate and suction. Jackson Bowel Prep Score 1 + 1 + 1 = 3. No obvious large polyps on this exam. No evidence for bleeding. Retroflex exam with minimal hemorrhoids. Withdrawal time 8 minutes and 58 seconds. PLAN: 1. Repeat in one year with a two day prep. CC: DR. KELLIE DURAN
== END 2018-05-28 14:30 | disposition home or self-care (01) ==
LOC: SURG 11:00
PROVIDERS: ATTEND Internal Medicine Gastroenterology
DX: D64.9 Anemia, unspecified (principal)
CPT/HCPCS: 81025